=== PATIENT | female | born 1950 | race Asian ===

== ENCOUNTER 2018-01-26 10:50 | Emergency (ER) | payer OTHER, MEDICARE ==
[~2018-01-26] VITALS: Ht 157.5 cm; Wt 63.5 kg
[2018-01-26 10:50] VITALS: BP_SYST 137
--- NOTE | 2018-01-26 10:50 | NUR ---
BROUGHT BACK TO BED #3 AND TRIAGED. REPORT GIVEN TO LAMONTE
--- NOTE | 2018-01-26 10:52 | NUR ---
ER at bedside examining patient.
--- NOTE | 2018-01-26 10:52 | NUR ---
patient arrived from home with spouse at bedside. patient is AOx4 c/o fast heart beat x5 months. patient is followed by a it associate at this time. no other complaint or injury noted.
--- NOTE | 2018-01-26 10:53 | NUR ---
patient using restroom.
--- NOTE | 2018-01-26 10:55 | NUR ---
patient back to bed and attached to monitor.
--- NOTE | 2018-01-26 11:03 | NUR ---
ER at bedside examining patient.
--- NOTE | 2018-01-26 11:36 | NUR ---
xray at bedside
[2018-01-26 11:47] LABS: BILIRUBIN,URINE NEGATIVE (NEGATIVE); BLOOD, URINE NEGATIVE (NEGATIVE); CLARITY/URINE CLEAR (CLEAR); COLOR,URINE YELLOW (YELLOW); GLUCOSE,URINE NEGATIVE (NEGATIVE); KETONES,URINE NEGATIVE (NEGATIVE); LEUKOCYTE ESTERASE ,URINE NEGATIVE (NEGATIVE); NITRITE, URINE NEGATIVE (NEGATIVE); PROTEIN URINE NEGATIVE (NEGATIVE); UROBILINOGEN,URINE 0.2 (0.2-1.0)
[2018-01-26 12:01] LABS: BASOPHILS % (AUTO) 0.5 % (0.0-2.0); EOSINOPHILS # (AUTO) 0.1 K/uL (0.0-0.4); EOSINOPHILS % (AUTO) 1.6 % (0.0-4.0); HEMATOCRIT 40.1 % (36-48); HEMOGLOBIN 13.7 g/dL (12.0-16.0); LYMPHOCYTES # (AUTO) 1.5 K/uL (1.0-5.5); LYMPHOCYTES % (AUTO) 30.5 % (20.5-51.5); MEAN CORPUSCULAR HEMOGLOBIN 30 pg (27-31); MEAN CORPUSCULAR HGB CONC 34 % (32-36); MEAN CORPUSCULAR VOLUME 88 fL (79.0-98.0); MONOCYTES # (AUTO) 0.5 K/uL (0.0-1.0); MONOCYTES % (AUTO) 9.7 % (1.7-9.3); NEUTROPHILS # (AUTO) 2.9 K/uL (1.8-7.7); NEUTROPHILS % (AUTO) 57.7 % (40.0-70.0); PLATELET COUNT (AUTO) 216 K/uL (130-430); RED BLOOD CELL COUNT(AUTO) 4.56 MIL/uL (4.2-6.2); RED CELL DISTRIBUTION WIDTH 13.5 % (9.0-15.0)
[2018-01-26 12:05] LABS: ANION GAP 10 (5-15); CALCIUM 9.2 mg/dL (8.4-11.0); CHLORIDE 105 mmol/L (98-107); CREATININE 0.64 mg/dL (0.55-1.30); GLUCOSE 113 mg/dL (70-99); POTASSIUM 3.7 mmol/L (3.5-5.1); SODIUM SERUM 142 mmol/L (136-145); UREA NITROGEN, BLOOD 13 mg/dL (8-21)
[2018-01-26 12:10] LABS: GFR AFRICAN AMERICAN 119 mL/min (>90)
[2018-01-26 12:13] LABS: ALANINE AMINOTRANSFERASE 30 U/L (12-78); ALBUMIN 3.8 g/dL (3.4-4.8); ASPARTATE AMINOTRANSFERASE 21 U/L (10-37); TOTAL BILIRUBIN 0.7 mg/dL (0.0-1.0)
--- NOTE | 2018-01-26 12:45 | NUR ---
patient ready for home, getting dressed.
[2018-01-26 12:58] VITALS: BP_SYST 112
== END 2018-01-26 12:55 | disposition home or self-care (01) ==
LOC: SED 10:50
DX: R00.2 Palpitations (principal); J44.9 Chronic obstructive pulmonary disease, unspecified; R03.0 Elevated blood-pressure reading, without diagnosis of hypertension; Z85.3 Personal history of malignant neoplasm of breast
CPT/HCPCS: 36415; 71045; 80053; 81003; 83880; 84484; 85025; 93005; 99284